=== PATIENT | male | born 1930 ===

== ENCOUNTER → 2017-08-27 | Outpatient (CLI) | payer MEDICARE, OTHER ==
[~2017-08-27] VITALS: Ht 160 cm; Wt 66.5 kg
[~2017-08-27] MED LIST: ADV250 IH; ALLO100T PO; ASPI81 PO; ATOR40TA28 PO; CIPRODEX; FLUT16H NASAL; GLYC10.7 IH; LEVO100 PO; METO25XL PO; TAMS0.4C32 PO; VIAGRA PO; VITAMIN B12 PO
[2017-08-27 12:56] VITALS: BP 140/60
== END | disposition home or self-care (01) ==
LOC: SRCNTR 12:25
PROVIDERS: ATTEND Internal Medicine
DX: J92.0 Pleural plaque with presence of asbestos (principal); I10 Essential (primary) hypertension; I25.10 Atherosclerotic heart disease of native coronary artery without angina pectoris; I48.0 Paroxysmal atrial fibrillation; M10.9 Gout, unspecified; Z79.82 Long term (current) use of aspirin; Z95.1 Presence of aortocoronary bypass graft; Z87.891 Personal history of nicotine dependence
CPT/HCPCS: G0463